=== PATIENT | female | born 1980 | race African-American/Black ===

== ENCOUNTER 2016-08-21 05:48 | Inpatient (IN) ==
[2016-08-21] MEDS ORDERED: BUTORPHANOL 2 MG/ML VIAL IV PRN (06:03)
[2016-08-21] MEDS ORDERED: ONDANSETRON 4 MG/2 ML VIAL IV PRN ×2 (06:03→13:09)
[2016-08-21] MEDS ORDERED: MEPERIDINE 50 MG/1 ML VIAL IV PRN (06:03)
[2016-08-21] MEDS: LACTATED RINGERS 1,000 ML IV SCH ×2 (06:20→09:50)
[2016-08-21 06:47] LABS: Basophils % 0.2 % (0.0-0.8); Eosinophils % 0.6 % (0.00-10.9); Hematocrit 32.1 VOL% (35.7-47.0); Hemoglobin 10.9 GM/DL (12.0-16.0); Immature Granulocytes % 1.1 %; Immature Granulocytes Absolute 0.07 #; Lymphocytes # 1.8 10*3/uL (1.4-4.0); Mean Corpuscular Hemoglobin 30 PG (27-34); Mean Corpuscular Volume 87.5 FL (87-102); Monocytes # 0.4 10*3/uL (0.11-0.8); Neutrophils # 3.9 10*3/uL (1.4-7.4); Neutrophils % 62.1 % (38.7-73.9); Platelet Count 304 T/CUMM (130-400); Red Blood Count 3.67 MC/CUMM (3.8-5.5); Red Cell Distribution Width 13.9 % (9.3-17.3); White Blood Count 6.3 T/CUMM (4-12)
[2016-08-21 06:59] LABS: INR 0.9; PT Patient Result 9.6 SECS; Partial Thromboplastin Time 27.1 SECS (0-40)
[2016-08-21 07:29] LABS: Albumin 2.8 G/DL (3.4-5.0); Bilirubin,Total 0.4 MG/DL (0.2-1.0); Calcium 8.8 MG/DL (8.5-10.1); Osmolality,Calculated 272.7 MOS/KG (273-304); Total Protein 6.8 G/DL (6.4-8.3)
[2016-08-21] MEDS ORDERED: OXYTOCIN/LR 20 UNIT/1,000 ML BAG IV SCH (07:30)
[2016-08-21] MEDS ORDERED: PROMETHAZINE 25 MG/1 ML VIAL IM ONE (08:57)
[2016-08-21] MEDS ORDERED: hydrOXYzine HCL 25 MG/1 ML VIAL IM PRN (08:57)
[2016-08-21] MEDS ORDERED: FAMOTIDINE 20 MG/2 ML VIAL IV ONE (08:57)
[2016-08-21] MEDS ORDERED: ePHEDrine 50 MG/ML AMP IV PRN (08:57)
[2016-08-21] MEDS ORDERED: CITRIC ACID/SODIUM CITRATE 30 ML UDCUP PO ONE (08:57)
[2016-08-21] MEDS ORDERED: ONDANSETRON 4 MG/2 ML VIAL IV ONE (08:57)
[2016-08-21] MEDS ORDERED: fentaNYL 2 MCG/ROPIV 0.2% EPID 150 ML EPIDURAL SCH (08:57)
[2016-08-21] MEDS ORDERED: diphenhydrAMINE 50 MG/1 ML VIAL IV PRN ×2 (08:57)
--- NOTE | 2016-08-21 08:58 | OB/GYN History & Physical ---
History of Present Illness Chief complaint: induction of labor History of present illness: Ms. Dorado is a 35 year old female Admitted at 39 weeks gestation for induction of labor at term Home Medications Medication Instructions Recorded Confirmed Type Methyldopa [Aldomet] 1 tablet PO BID 07/29/16 07/29/16 History Pnv No.95/Ferrous Fum/Folic AC 1 tablet PO DAILY 07/29/16 07/29/16 History [ Tablet] Allergies Allergy/AdvReac Type Severity Reaction Status Date / Time No Known Allergies Allergy Verified 05/27/16 12:49 12 point system: reviewed and no additional remarkable complaints except as stated Medical,Surgical,& Family Hx - Medical History Neurology: History of: Migraine - Family History Family History: Reports;: Family Cancer (FATHER, MGM), Family Diabetes (MOTHER) , Family Heart Disease (FATHER, MOTHER), Family Stroke (MOTHER, FATHER) - Social History Smoking Status: Never smoker Frequency of Alcohol Use: None Type of Drug Use: None 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 IUPC placed with ease Presentation: Vertex Heart Rate: 140s-150s reactive with no decelerations [place]: Contractions every 2-3 minutes Abdomen obstetrics: Present: bowel sounds normal - Head Head exam: Present: normocephalic - Neck Neck exam: Present: normal inspection - Respiratory Respiratory exam: Present: clear to auscultation bilaterally - Cardiovascular Cardiovascular exam: Present: regular rate and rhythm - GI/Abdominal GI/Abdominal exam: Present: normal bowel sounds, soft - Extremities Exam Extremities exam: Present: normal inspection - Back Exam Back exam: Present: normal inspection - Neurological Exam Neurological exam: Present: alert, oriented X3 - Psychiatric Psychiatric exam: Present: normal affect, normal mood - Skin Skin exam: Present: normal color, warm Assessment and Plan (1) 39 weeks gestation of Status: Acute Assessment and plan: Pitocin induction with expected vaginal delivery Current Visit: Yes Results - Labs CBC & BMP: 08/21/16 06:13 08/21/16 06:13
[2016-08-21] MEDS ORDERED: CITRIC ACID/SODIUM CITRATE 30 ML UDCUP ONE (09:37)
[2016-08-21] MEDS ORDERED: fentaNYL 2 MCG/ROPIV 0.2% EPID 150 ML EPIDURAL ONE (09:38)
[2016-08-21] MEDS ORDERED: BENZOCAINE 20%/MENTHOL 0.5% SPRAY 56 GM CAN TOP PRN (13:09)
[2016-08-21] MEDS ORDERED: BISACODYL 10 MG SUPP RECTAL PRN (13:09)
[2016-08-21] MEDS ORDERED: ACETAMINOPHEN 325 MG TABLET PO PRN (13:09)
[2016-08-21] MEDS ORDERED: WITCH HAZEL PADS 100/JAR TOP PRN (13:09)
[2016-08-21] MEDS ORDERED: LANOLIN 50% CREAM 0.3 OZ TUBE TOP PRN (13:09)
[2016-08-21] MEDS ORDERED: OXYTOCIN/LR 20 UNIT/1,000 ML BAG IV ONE (13:09)
[2016-08-21] MEDS ORDERED: oxyCODONE/ACETAMINOPHEN 5-325 MG TABLET PO PRN (13:09)
[2016-08-21] MEDS ORDERED: HYDROCORTISONE 2.5% RECTAL CREAM 30 GM TUBE TOP PRN (13:09)
--- NOTE | 2016-08-21 13:11 | Operative Note ---
Date of procedure: 08/21/16 Procedure Preformed: Patient delivered a liveborn female infant via spontaneous vaginal delivery. Baby's head was delivered in the SERG position. The baby's nose mouth bulb suctioned the perineum. Anterior posterior shoulders followed by the body was delivered with ease. Status post internal after" was doubly clamped and cut. Cord blood was sent. Placenta was delivered spontaneously and intact with three -vessel cord. The uterus was massaged and was found to confirm a well contracted. The patient sustained a first-degree perineal laceration which was repaired with 2-0 chromic. Birthweight 6 lbs. 4 oz. Apgars 9 and 9. Baby and mother stable. And the procedure all sponge lap counts correct 2. Surgeon / Physician: Thania Russ Post-op diagnosis: same Findings: Liveborn female Specimens: none sent Estimated blood loss: other (100 mL) Condition: stable Anesthesia: epidural Disposition: floor
--- NOTE | 2016-08-21 13:12 | Discharge Summary ---
Hospital Course - Hospital Course Hospital Course: This is a 35-year-old female at 39 weeks gestation who was admitted for induction of labor at term. Patient subsequently delivered a liveborn female infant via spontaneous vaginal delivery. Hospital course was unremarkable by day #2 she was ready for discharge. Diagnosis - Discharge Diagnosis (1) 39 weeks gestation of Status: Acute Specialty Discharge - Follow Up or Referrals Follow up with: Thania Russ MD [Physician] - 1 Month Discharge Plan - Discharge Data Disposition: Disch To Home/Self Care Condition at Discharge: Stable Discharge Diet: advance to your usual diet Activity: resume usual activities as tolerated (Pelvic rest) Hygiene: may shower Weight Bearing at Discharge: weight bear as tolerated Driving: no restrictions Contact your physician if you experience:: fever over 101, Difficulty voiding, Redness or swelling, Nausea/Vomiting, Shortness of breath, Bleeding, pain uncontrolled by pain medications - Discharge Medications No Action Pnv No.95/Ferrous Fum/Folic AC [ Tablet] 1 tablet PO DAILY Methyldopa [Aldomet] 1 tablet PO BID - Follow Up or Referral Follow Up: Thania Russ MD [Physician] - 1 Month - Forms/Instructions Instructions: Perineal Care (DC), Vaginal Delivery (DC), Bleeding (DC) Exam - Constitutional Vitals: Period Temp Pulse Resp BP Sys/Pastor Pulse Ox Last 24 Hr 98 F 90 18 131/85 General appearance: no acute distress - Head Head exam: Present: normocephalic - Neck Neck exam: Present: normal inspection - Respiratory Respiratory exam: Present: clear to auscultation bilaterally - Cardiovascular Cardiovascular exam: Present: regular rate and rhythm - GI/Abdominal GI/Abdominal exam: Present: normal bowel sounds, soft - Extremities Exam Extremities exam: Present: normal inspection - Back Exam Back exam: Present: normal inspection - Neurological Exam Neurological exam: Present: alert, oriented X3 - Psychiatric Psychiatric exam: Present: normal affect, normal mood - Skin Skin exam: Present: normal color, warm Discharge Results Procedures and tests throughout hospitalization: Pending Orders 08/21/16 06:03 Urinalysis Routine 08/22/16 04:00 Comp Blood Count Auto Diff IN AM Labs on day of discharge: Labs from last 24 hours 08/21/16 08/21/16 08/21/16 06:17 06:13 06:13 WBC RBC Hgb Hct MCV MCH MCHC RDW Plt Count MPV Neut % (Auto) Lymph % (Auto) Pender % (Auto) Eos % (Auto) Baso % (Auto) Neut # (Auto) Lymph # (Auto) Pender # (Auto) Eos # (Auto) Baso # (Auto) Immature Gran % Nucleated RBC % Immature Gran # Nucleated RBCs # INR 0.9 PT Patient/Control Mix 9.6 Fibrinogen 375 Circ Anticoag PTT 27.1 Sodium 138 Potassium 4.0 Chloride 105 Carbon Dioxide 24 Anion Gap 13.0 BUN 7 Creatinine 0.60 GFR Calculation 155 BUN/Creatinine Ratio 11.00 Glucose 92 Calculated Osmolality 272.7 L Uric Acid 3.5 Calcium 8.8 Total Bilirubin 0.40 AST 23 ALT 23 Alkaline Phosphatase 140 H Total Protein 6.8 Albumin 2.8 L Globulin 4.0 H Albumin/Globulin Ratio 0.7 L Blood Type Antibody Screen 08/21/16 08/21/16 06:13 06:13 WBC 6.3 RBC 3.67 L Hgb 10.9 L Hct 32.1 L MCV 87.5 MCH 30 MCHC 34.0 RDW 13.9 Plt Count 304 MPV 10.0 Neut % (Auto) 62.1 Lymph % (Auto) 29.0 Pender % (Auto) 7.0 Eos % (Auto) 0.6 Baso % (Auto) 0.2 Neut # (Auto) 3.9 Lymph # (Auto) 1.8 Pender # (Auto) 0.4 Eos # (Auto) 0.0 Baso # (Auto) 0.0 Immature Gran % 1.1 Nucleated RBC % 0.0 Immature Gran # 0.07 Nucleated RBCs # 0.00 INR PT Patient/Control Mix Fibrinogen Circ Anticoag PTT Sodium Potassium Chloride Carbon Dioxide Anion Gap BUN Creatinine GFR Calculation BUN/Creatinine Ratio Glucose Calculated Osmolality Uric Acid Calcium Total Bilirubin AST ALT Alkaline Phosphatase Total Protein Albumin Globulin Albumin/Globulin Ratio Blood Type A POSITIVE Antibody Screen Negative DS: Provider Date of admission: 08/21/16 06:03 Primary care physician: . No PCP Attending physician on admission: Thania Russ MD Consults: 08/21/16 06:03 Consult to Anesthesiology [CONS] Routine Consulting Provider: Reason for Anesthesiology: Epidural Consult Comment: Epidural for pain managment 08/21/16 06:48 Consult to Dietitian [CONS] Routine Reason for Dietitian: Dietary Consult Consult Comment: SEE AFTER DELIVERY 08/21/16 13:09 Consult to Credit Administrator [CONS] Routine Consult Credit Administrator: Breast Feeding Discharging clinician: Thania Russ MD
[2016-08-21] MEDS ORDERED: DIPH/TET/ACEL PERT BOOSTER VACCINE 0.5 ML VIAL IM ONE (14:00)
[2016-08-21] MEDS ORDERED: RHO(D) IMMUNE GLOBULIN 300 MCG SYRINGE IM ONE (14:00)
[2016-08-21] MEDS ORDERED: MEASLES/MUMPS/RUBELLA VACCINE 0.5 ML VIAL SUBCUT ONE (14:00)
[2016-08-21 15:21] LABS: Apearance,Urine CLEAR (Clear); Bilirubin,Urine Negative (Negative); Blood, Urine Negative (Negative); Glucose,Urine (UA) Negative (Negative); Ketones,Urine Negative (Negative); Mucus,Urine Occasional /LPF (Occasional); Nitrite,Urine Negative (Negative); Protein,Urine Negative; RBC,Urine <1 /HPF (0-4); Squamous Epithelial Cell,Urine Occasional /HPF (0-10); Urine Color Yellow (Yellow); Urine Specific Gravity 1.008 (1.001-1.035); Urine Urobilinogen < 2.0 EU/DL (0.2-1.0); WBC,Urine <1 /HPF (0-6)
[2016-08-21] MEDS: oxyCODONE/ACETAMINOPHEN 5-325 MG TABLET PO PRN (16:51)
[2016-08-21] MEDS: DOCUSATE SODIUM 100 MG CAPSULE PO SCH (20:02)
[2016-08-21] MEDS: IBUPROFEN 800 MG TABLET PO PRN (20:03)
[2016-08-22] MEDS: oxyCODONE/ACETAMINOPHEN 5-325 MG TABLET PO PRN ×4 (02:03→22:05)
[2016-08-22] MEDS: IBUPROFEN 800 MG TABLET PO PRN (06:16)
[2016-08-22 07:08] LABS: Basophils % 0.2 % (0.0-0.8); Eosinophils # 0.1 10*3/uL (0.0-0.87); Eosinophils % 0.6 % (0.00-10.9); Hematocrit 34.3 VOL% (35.7-47.0); Hemoglobin 11.5 GM/DL (12.0-16.0); Immature Granulocytes % 0.5 %; Immature Granulocytes Absolute 0.05 #; Lymphocytes # 2.3 10*3/uL (1.4-4.0); Lymphocytes % 25.1 % (21.3-54.2); Mean Corpuscular HGB Conc 33.5 GM/DL (32-36); Mean Corpuscular Hemoglobin 30 PG (27-34); Mean Corpuscular Volume 88.2 FL (87-102); Mean Platelet Volume 9.7 FL (9.6-12.0); Monocytes # 0.6 10*3/uL (0.11-0.8); Monocytes % 6.5 % (1.7-12.7); Neutrophils # 6.2 10*3/uL (1.4-7.4); Neutrophils % 67.1 % (38.7-73.9); Platelet Count 290 T/CUMM (130-400); Red Blood Count 3.89 MC/CUMM (3.8-5.5); Red Cell Distribution Width 14.2 % (9.3-17.3); White Blood Count 9.3 T/CUMM (4-12)
[2016-08-22] MEDS: DOCUSATE SODIUM 100 MG CAPSULE PO SCH ×2 (08:48→20:05)
--- NOTE | 2016-08-22 08:49 | OB/GYN Progress Note ---
Assessment and Plan (1) 39 weeks gestation of Status: Acute Assessment and plan: Pitocin induction with expected vaginal delivery Current Visit: Yes (2) Vaginal delivery Status: Acute Assessment and plan: Routine care with discharge planning in a.m. 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 Breast-feeding. Unsure of plan of contraception. 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 - Constitutional Vitals: Vital Signs Temp Pulse Resp BP Pulse Ox 08/22/16 07:39 97.2 F L 91 H 20 148/90 98 08/22/16 04:00 96.9 F L 81 20 127/80 97 08/21/16 23:59 98.0 F 80 20 135/88 100 08/21/16 20:03 97.0 F L 83 20 127/83 97 08/21/16 17:45 95 H 20 138/90 08/21/16 16:45 93 H 20 136/87 08/21/16 16:00 95 H 158/90 08/21/16 15:45 78 20 140/90 08/21/16 15:15 72 124/88 08/21/16 14:45 97.1 F L 75 18 134/96 - Antepartum / Post Post Exam Abdomen obstetrics: Present: bowel sounds normal Vagina: Present: normal moisture Uterus exam: Present: normal size, normal contour Anus/Rectum: Present: normal perianal skin - Head Head exam: Present: normocephalic - Respiratory Respiratory exam: Present: clear to auscultation bilaterally - Cardiovascular Cardiovascular exam: Present: regular rate and rhythm - GI/Abdominal GI/Abdominal exam: Present: normal bowel sounds, soft - Extremities Exam Extremities exam: Present: normal inspection - Back Exam Back exam: Present: normal inspection - Neurological Exam Neurological exam: Present: alert, oriented X3 - Psychiatric Psychiatric exam: Present: normal affect, normal mood - Skin Skin exam: Present: normal color, warm Results - Labs CBC & BMP: 08/22/16 07:07 08/21/16 06:13
--- NOTE | 2016-08-22 19:38 | Anesthesia Post-Op ---
Anesthesia Post OP - Post Ansesthetic Evaluation Patient seen in post op: Yes Resp: within normal limits CV: within normal limits Mental: within normal limits Temp: within normal limits [id number]: within normal limits Nausea and Vomiting: within normal limits Pain: within normal limits
[2016-08-23] MEDS ORDERED: ZALEPLON 5 MG CAPSULE PO PRN (00:02)
[2016-08-23] MEDS: oxyCODONE/ACETAMINOPHEN 5-325 MG TABLET PO PRN (07:48)
[2016-08-23 08:19] VITALS: BP 142/91
[2016-08-23] MEDS: DOCUSATE SODIUM 100 MG CAPSULE PO SCH (09:10)
== END 2016-08-23 13:40 | disposition home or self-care (01) | DRG 775 ==
LOC: N.LDOUT 05:48 → N.LD 05:50 → N.OB 14:32
PROVIDERS: ADMIT Obstetrics & Gynecology; ATTEND Obstetrics & Gynecology